=== PATIENT | male | born 1980 | race Caucasian/White ===

== ENCOUNTER 2017-02-08 17:57 | Observation (INO) ==
[2017-02-08] MEDS ORDERED: Lidocaine/EPI 1:100k 1% 50 ML VIAL INFILT ONE (18:10)
--- NOTE | 2017-02-08 18:13 | Emergency Department Note ---
Disposition Clinical Impression: Lesion of finger, Osteomyelitis of finger of left hand Disposition: Admitted As Inpatient Condition: Good Skin/Abscess/FB HPI Chief complaint: ED Skin/Abscess/Foreign Body Stated complaint: knot on finger Time Seen by Provider: 02/08/17 18:08 Source: patient Mode of arrival: private vehicle Limitations: no limitations Nursing Notes Reviewed: Yes Vital Signs Reviewed: Yes Pt Subjective Complaint: lesion Onset (ago): month(s) Tetanus Up to Date: yes Location: L hand (index finger) Severity: moderate Quality: sharp Consistency: constant Improves with: none Worsens with: palpation, movement Context: other ('Had a knot on the finger for over a month with no pain and for the past 3 days it has moved toward the hand and become sore. Since this morning the pain has increased significantly and now it is red and swollen on the side of the finger as well. ) Associated symptoms: Denies: fever, chills, rigors, itching, nausea, vomiting, malaise, arthralgias, myalgias Treatments prior to arrival: none Allergies Allergy/AdvReac Type Severity Reaction Status Date / Time No Known Allergies Allergy Verified 02/08/17 18:07 All systems ED: reviewed and negative except as stated. Review of Systems: As Per HPI Constitutional: Denies: fever, chills, weakness Gastrointestinal: Denies: abdominal pain, nausea, vomiting Musculoskeletal: Denies: back pain, neck pain, joint swelling Neurological: Denies: headache, weakness, numbness, paresthesias Hematological/Lymphatic: Denies: easy bleeding, easy bruising Past Medical History - Past Medical History Attestation: Yes The following information was validated with the patient. Source: patient Medical history: Reports: renal disease Psychiatric history: Reports: schizophrenia - Social History Smoking Status: Former smoker Smokeless Tobacco Status: Yes Alcohol use: Reports: occasionally Drug use: Reports: none Physical Exam - General Limitations: no limitations General appearance: alert, in no apparent distress - Head Head exam: atraumatic, normocephalic, normal inspection - Eye Eye exam: Present: normal appearance, PERRL. Absent: scleral icterus, conjunctival injection, periorbital swelling - ENT ENT exam: normal exam, normal oropharynx, mucous membranes moist - Neck Neck exam: Present: normal inspection, full ROM, trachea midline. Absent: meningismus - Respiratory Respiratory exam: Absent: respiratory distress - Extremities Exam Extremities exam: Present: full ROM, tenderness, normal capillary refill - Expanded Upper Extremity Exam Hand L/R front image: 1 - other (tender nodule) 2 - other (mild edema) Hand L/R back image: 1 - mild erythema and edema, tender Neuromotor exam: Normal: wrist extension, thumb opposition, thumb IP flexion, thumb adduction, fingers 2-5 abduction Neurosensory exam: Normal: radial nerve, ulnar nerve, median nerve Hand tendon exam: Normal: flexor digitorum profundus (location), flexor digitorum superficialis (location), extensor tendon (location) Vascular exam: Normal: capillary refill, radial pulse, ulnar pulse - Neurological Exam Neurological exam: Present: alert, oriented X3, CN II-XII intact, normal gait. Absent: motor sensory deficit - Psychiatric Psychiatric exam: Present: normal affect, normal mood - Skin Skin exam: Present: warm, dry, intact, normal color Course Course Narrative: Patient presents from home for evaluation of a painful knot on the volar aspect of the middle phalanx of the left index finger. The knot has been present for a month with no pain until today. He states that the knot has moved proximally over the past 3-4 days. This morning he noticed redness and swelling around the knot that extends to the radial side. The tenderness is circumferential. He has FAROM and intact sensation in the finger. Strength is symmetric in the fingers. Patient's tdap is current and he is otherwise healthy. Lesion appears to be an abscess +/- possible cyst. Will get an xray and I&D the abscess. Finger blocked to help with pain. This provided significant symptomatic improvement. Xray shows bony abnormality. Will wait for Radiologist read. Dr. Verde consulted. Rad reports focal mature periosteal reaction. Patient has hx of osteomyelitis of the foot in the past which required multiple surgeries and months of IVABX. He states that the infection was from MRSA. Will start ABX and consult with ortho. Patient's finger appears dusky and cap refill is delayed. This appears to be vasospasm - possibly second to the anaesthetic. PAtient denies pain or tenderness in the finger. Patient seen by Dr. Verde. Phentolamine ordered. Patient informed that he will need to be admitted for IVABX. He is in agreement with the plan and asked if he could go to his car to get some things. I informed him that he would be getting another injection in the finger to reverse the vasospasm. He assured me that he would "be right back." Pharmacy called to check on status of phentolamine order. Yeyo states that it will be sent up shortly. Patient still outside. Security notified to go find patient and ask him to return. Pharmacy called again. No answer. Yeyo from Pharmacy called to inform that we are out of phentolamine and we currently have nothing to reverse vasospasm. Patient returned from outside. He states that he was smoking a cigarette and getting his phone. His finger is now pink and has normal cap refill. Pain has returned somewhat. - Reevaluation(s) Reevaluation #2: Patient returns from his car. His finger color has returned to normal. Cap refill is normal. Tenderness / pain still improved. Time: 19:55 - Consultations Consultation #1: Case discussed with Dr. Verde. He has seen the patient, recommends phentol Time: 19:48 Consultation #2: Case was discussed with Dr. Tobin. He agrees with the plan to admit, get the MRI, start antibiotics, and use phentolamine. Time: 19:49 Consultation #3: MR tim called by appraisal technician. They report that a hand MR is not something they routinely come in for after hours. They latrice that we contact [facility] to discuss the urgency of the situation. Discussed case with Dr Limon - Radiologist. She states that the study does not need to be done emergently. Called the appraisal technician, Stefani back. She states that the MR meeta will be in tomorrow at 11:00 am. Time: 20:25 Vital Signs Temperature 97.6 F 02/08/17 18:02 Pulse Rate 106 02/08/17 18:02 Respiratory Rate 16 02/08/17 18:02 Blood Pressure 137/85 02/08/17 18:02 O2 Sat by Pulse Oximetry 100 02/08/17 18:02 Temperature 97.6 F 02/08/17 18:02 Pulse Rate 106 02/08/17 18:02 Respiratory Rate 16 02/08/17 18:02 Blood Pressure 137/85 02/08/17 18:02 O2 Sat by Pulse Oximetry 100 02/08/17 18:02 Oxygen Delivery Oxygen Delivery Room Air Skin/Abscess/Foreign Body - Medical Records Medical records reviewed: Yes I reviewed the patient's medical records. - Lab Data Lab results reviewed: Yes I reviewed the patient's lab results. - Radiology Data Radiology results reviewed: Yes I reviewed the patient's radiology results. Finger X-Ray 02/08/17 18:35 IMPRESSION: Focal mature periosteal reaction of the volar middle phalanx of the left 2nd digit with overlying soft tissue focal swelling. A soft tissue lesion is likely. An MRI with contrast is recommended to further evaluate. D/ / Viviana Harris Cha, MD / Viviana Harris Cha, MD Interpreting Provider: Viviana Harris Cha, MD
[2017-02-08] MEDS ORDERED: PHENTOLAMINE MESYLATE 5 MG VIAL IJ ONE (19:34)
[2017-02-08] MEDS ORDERED: 0.9 % Sodium Chloride 1,000 ML IVC ONE (19:46)
[2017-02-08] MEDS ORDERED: *HR* Morphine 2 MG/ML SYRINGE IVP ONE (19:46)
[2017-02-08] MEDS ORDERED: Ondansetron 4 MG/2 ML VIAL IVP ONE (19:46)
[2017-02-08] MEDS ORDERED: Vancomycin 1,000 MG in D5% in Water 250 ML IVPB ONE (19:52)
--- NOTE | 2017-02-08 19:56 | Emergency Department Note ---
START Narrative - START START: For this encounter, I have reviewed the SOCIAL STUDIES TEACHER or PA documentation, treatment plan, and medical decision making; and I have had face to face time with this patient. Possible osteomyelitis. The patient did have considerable pain and digital block was performed. I do suspect he had some degree of vasospasm following digital block. We will administer phentolamine locally, consult orthopedics, obtain MRI with contrast, initiating antibiotic therapy for possible osteomyelitis. The patient is right-hand dominant. Plan to admit for IV antibiotics.
[2017-02-08 20:14] LABS: Basophils # 0.1 K/mcL (0.0-0.2); Basophils % 0.5 %; Eosinophils # 0.1 K/mcL (0.0-0.6); Eosinophils % 0.9 %; Hematocrit 47.6 % (37.5-50.1); Immature Granulocytes % 0.3 % (0-4); Lymphocytes % 27.4 %; Mean Corpuscular HGB Conc 33.6 g/dL (31.6-35.5); Mean Corpuscular Hemoglobin 30.9 pg (28.0-33.3); Mean Corpuscular Volume 91.9 fL (83.0-100.0); Mean Platelet Volume 9.6 fL (9.4-12.4); Monocytes % 9.3 %; Neutrophils # 6.9 K/mcL (1.6-8.9); Platelet Count 264 K/mcL (140-400); Red Blood Count 5.18 M/mcL (4.19-5.50); Red Cell Distribution Width 13.5 % (11.5-14.5); Segmented Neutrophils % 61.6 %
[2017-02-08 20:26] LABS: BUN/Creatinine Ratio 13 (6-26); Blood Urea Nitrogen 14 mg/dL (8-26); Calcium 10.1 mg/dL (8.6-10.8); Carbon Dioxide 28 mEq/L (19-29); Chloride 103 mEq/L (98-109); Glucose 100 mg/dL (70-99); Osmolality,Calculated 293 (280-300); Potassium 3.7 mEq/L (3.5-4.5); Sodium 141 mEq/L (136-145); eGFR For African Americans > 60 (> 60); eGFR For Non-African Americans > 60 (> 60)
[2017-02-08] MEDS ORDERED: Ampicillin/Sulbactam 3,000 MG in 0.9 % Sodium Chloride Mini Bag 100 ML IVPB ONE (20:50)
[2017-02-09] MEDS ORDERED: Naloxone 0.4 MG/ML INJ IVP PRN (00:13)
[2017-02-09] MEDS: *HR* Morphine 2 MG/ML SYRINGE IVP PRN ×5 (00:18→19:21)
--- NOTE | 2017-02-09 00:26 | Internal Med History&Physical ---
Date of Encounter: 02/08/17 Time of Encounter: 11:30 Assessment and Plan (1) Schizophrenia Current visit: Yes Status: Chronic Mood and affect are normal. Will monitor closely for any signs of overt psychosis. Qualifiers: Schizophrenia type: unspecified Qualified Code(s): F20.9 - Schizophrenia, unspecified Code(s): F20.9 - Schizophrenia, unspecified SNOMED Code(s): 74307031 (2) Cannabis abuse Current visit: Yes Status: Acute Advised to limit use (3) Lesion of finger Current visit: Yes Status: Acute soft tissue swelling? chronic Analgesia ordered Code(s): L98.9 - Disorder of the skin and subcutaneous tissue, unspecified SNOMED Code(s): 458055017 (4) Osteomyelitis of finger of left hand Current visit: Yes Status: Acute MRI hand ordered will follow up Vancomycin and Levaquin for now Ortho consult Follow up blood cx Analgesia H/o MRSA in past will place on contact precautions Code(s): M86.9 - Osteomyelitis, unspecified SNOMED Code(s): 45648227 (5) MRSA (methicillin resistant Staphylococcus aureus) Current visit: Yes Status: Resolved h/o MRSA soft tissue infection, will follow cx and continue Vancomycin for now Code(s): A49.02 - Methicillin resistant Staphylococcus aureus infection, unspecified site SNOMED Code(s): 457380536 Internal Medicine - H&P: HPI Chief complaint: Left Index finger swelling Admitted From: Emergency Dept Plans for Post Hospital Care: Home History of present illness: Mr. Aldrich is a 37 year old male with past medical history of schizophrenia ( not on any meds), MRSA foot infection comes in the the ER with painful swelling in left index finger. He notes that he has been having problems with pain and swelling in this finger for past few months but in last week has become more unbearable and he believes the swelling as now spread to his entire finger. He is unable to remember if he had trauma to the finger, denies any fevers, chills , no nausea, no vomiting, limited ROM of PIP of left index. Xray concerning for some osteomyelitis ? Expected LOS less than 2 midnights. Past Med Surg Social Fam HX - Past Medical History Medical history: renal disease Psychiatric history: schizophrenia - Social History Smoking Status: Former smoker Smokeless Tobacco Status: Yes Alcohol use: occasionally Drug use: none Internal Medicine - H&P: Meds 3 Allergy/AdvReac Type Severity Reaction Status Date / Time No Known Allergies Allergy Verified 02/08/17 18:07 All Systems PM: A 10-system review of systems was performed and is negative for pertinent findings except as documented above in the HPI. - Constitutional Vitals: Temp Pulse Resp BP Pulse Ox 98.3 F 101 19 141/79 99 02/09/17 00:16 02/09/17 00:16 02/09/17 00:16 02/09/17 00:16 02/09/17 00:16 General appearance: Present: A&O X 3 - Head Head exam: Present: atraumatic - Eye Eye exam: Present: EOMI, PERRL, conjuntiva pink Pupils: Present: PERRL - ENT ENT exam: Present: mucous membranes moist Additional comments: Poor dentition - Neck Neck exam general surgery: Present: full ROM, normal inspection - Respiratory Respiratory exam: Present: CTAB - Cardiovascular Cardiovascular exam: Present: RRR, +S1, +S2 - GI/Abdominal GI/Abdominal exam: Present: diminished bowel sounds, normal bowel sounds - Extremities Exam Extremities exam: Present: joint swelling (left pip index finger) - Back Exam Back exam: Present: full ROM - Neurological Exam Neurological exam: Present: normal gait, oriented X3, no focal deficits, strengths equal and symetr throughout - Psychiatric Psychiatric exam: Present: normal affect, normal mood - Skin Skin exam: Present: normal color Internal Med - H&P Results - Labs CBC & Chem 7: 02/08/17 20:02 02/08/17 20:02 - Diagnostic Studies Other Images Status: image reviewed by me
[2017-02-09] MEDS ORDERED: Vancomycin 1,250 MG in D5% in Water 250 ML IVPB SCH (01:00)
[2017-02-09] MEDS: Ketorolac 30 MG/ML VIAL IVP PRN ×2 (03:23→13:35)
[2017-02-09] MEDS: Famotidine 20 MG/2 ML VIAL IVP SCH ×2 (04:27→16:49)
[2017-02-09] MEDS: *HR* Heparin 5,000 UNIT/ML VIAL SQ SCH ×2 (04:27→16:49)
[2017-02-09 05:02] LABS: INR 1.1; Prothrombin Time 12.4 Seconds (9.4-12.1)
[2017-02-09 05:03] LABS: Basophils # 0.1 K/mcL (0.0-0.2); Basophils % 0.7 %; Eosinophils # 0.3 K/mcL (0.0-0.6); Eosinophils % 3.1 %; Hematocrit 42.7 % (37.5-50.1); Immature Granulocytes % 0.3 % (0-4); Lymphocytes # 3.1 K/mcL (0.6-4.6); Lymphocytes % 33.9 %; Mean Corpuscular HGB Conc 33.5 g/dL (31.6-35.5); Mean Corpuscular Hemoglobin 30.6 pg (28.0-33.3); Mean Corpuscular Volume 91.2 fL (83.0-100.0); Mean Platelet Volume 10.2 fL (9.4-12.4); Monocytes % 10.5 %; Neutrophils # 4.7 K/mcL (1.6-8.9); Platelet Count 210 K/mcL (140-400); Red Blood Count 4.68 M/mcL (4.19-5.50); Red Cell Distribution Width 13.6 % (11.5-14.5); Segmented Neutrophils % 51.5 %
[2017-02-09 05:04] LABS: Activated Partial Thrombo Time 29.3 Seconds (26.0-36.0)
[2017-02-09 05:06] LABS: Hemoglobin 14.3 g/dL (12.9-16.9)
[2017-02-09 05:36] LABS: BUN/Creatinine Ratio 16 (6-26); Blood Urea Nitrogen 16 mg/dL (8-26); Carbon Dioxide 24 mEq/L (19-29); Chloride 105 mEq/L (98-109); Glucose 81 mg/dL (70-99); Magnesium 1.9 mg/dL (1.6-2.6); Osmolality,Calculated 286 (280-300); Phosphorous 3.9 mg/dL (2.3-4.7); Potassium 3.9 mEq/L (3.5-4.5); Sodium 138 mEq/L (136-145); Uric Acid 6.4 mg/dL (3.5-7.2); eGFR For African Americans > 60 (> 60); eGFR For Non-African Americans > 60 (> 60)
--- NOTE | 2017-02-09 07:22 | Orthopedic Consult Note ---
Date of Encounter: 02/09/17 Time of Encounter: 07:21 History of Present Illness HPI: Mr. Aldrich is a 37 year old male With a long history of not on his left index finger volar aspect. Changes recently with increased pain. Patient with history of MRSA until require multiple surgeries. Physical exam swelling no erythema Good cap refill Mass volar aspect 1cm by half centimeter Tender X-ray showed bone erosion MRI pending We will be evaluated by hand surgeon in the morning. Past Med Surg Social Fam HX - Past Medical History Medical history: renal disease Psychiatric history: schizophrenia - Social History Smoking Status: Former smoker Smokeless Tobacco Status: Yes Alcohol use: occasionally Drug use: none Medications and Allergies 3 Allergy/AdvReac Type Severity Reaction Status Date / Time No Known Allergies Allergy Verified 02/08/17 18:07 All Systems Reviewed: A 10-system review of systems was performed and is negative for pertinent findings except as documented above in the HPI. Physical Exam - Constitutional Vitals: Temp Pulse Resp BP Pulse Ox 98.0 F 98 21 137/77 95 02/09/17 03:37 02/09/17 03:37 02/09/17 03:37 02/09/17 03:37 02/09/17 03:37 Results - Labs Result Diagrams: 02/09/17 04:19 02/09/17 04:19 Labs: Abnormal lab results PT 12.4 Seconds (9.4-12.1) H 02/09/17 04:19 H & H 02/09/17 Range/Units 04:19 Hgb 14.3 D (12.9-16.9) g/dL Hct 42.7 (37.5-50.1) % All other labs normal. Consult Discharge Plan - Plan Referrals: NONE,PCP [Primary Care Provider] -
[2017-02-09] MEDS: levoFLOXacin 750 MG TABLET PO SCH (08:58)
[2017-02-09] MEDS: Vancomycin 1,250 MG in D5% in Water 250 ML IVPB SCH ×2 (09:43→21:22)
[2017-02-09] MEDS: *HR* OxyCODONE/APAP 5/325 TABLET PO PRN ×2 (15:21→22:39)
--- NOTE | 2017-02-09 15:47 | Internal Med Progress Note ---
Date of Encounter: 02/09/17 Time of Encounter: 10:15 - Assessment and plan (1) Osteomyelitis of finger of left hand Current Visit: Yes Status: Suspected Assessment and plan: Pt to have MRI to eval second digit. To be seen by hand surgery tomorrow. Continue IV abx at this time. Has hx of MRSA infections in the past. (2) Schizophrenia Current Visit: Yes Status: Chronic Assessment and plan: Continue home meds. Qualifiers: Schizophrenia type: unspecified Qualified Code(s): F20.9 - Schizophrenia, unspecified (3) Cannabis abuse Current Visit: Yes Status: Chronic - Subjective Interval history: Mr Aldrich is currently in observation for potential osteomyelitis of finger. He is having some pain and will be seen by hand surgery tomorrow. Mr Aldrich is up in the room. No fever or chills. Tolerating abx. No CP or SOB. Awaiting MRI at this time. - Constitutional Vitals: Temp Pulse Resp BP Pulse Ox 98.2 F 92 14 124/86 97 02/09/17 11:27 02/09/17 11:27 02/09/17 11:27 02/09/17 11:27 02/09/17 11:27 General appearance: Present: A&O X 3, answers questions appropriately - Head Head exam: Present: normocephalic - Eye Eye exam: Present: conjuntiva pink - ENT ENT exam: Present: mucous membranes dry - Respiratory Respiratory exam: Present: CTAB. Absent: rhonchi, wheezes - Cardiovascular Cardiovascular exam: Present: RRR. Absent: systolic murmur, tachycardia - GI/Abdominal GI/Abdominal exam: Present: normal bowel sounds, soft - Extremities Exam Extremities exam: Present: warm Additional comments: L hand second digit with swelling and decreased movement. - Neurological Exam Neurological exam: Present: alert, oriented X3, no focal deficits Internal Medicine: Result - Labs CBC & Chem 7: 02/09/17 04:19 02/09/17 04:19 Labs: Short CBC 02/09/17 Range/Units 04:19 WBC 9.2 (4.3-11.1) K/mcL Hgb 14.3 D (12.9-16.9) g/dL Hct 42.7 (37.5-50.1) % Plt Count 210 (140-400) K/mcL Neutrophils # 4.7 (1.6-8.9) K/mcL BMP 02/09/17 04:19 Sodium 138 Potassium 3.9 Chloride 105 Carbon Dioxide 24 BUN 16 Creatinine 1.02 Glucose 81 Calcium 9.0 - ABG Interpretation ABG results: PT/INR, D-dimer PT 12.4 Seconds (9.4-12.1) H 02/09/17 04:19 - Impressions Impressions Hand MRI 02/09/17 19:45 IMPRESSION: 1. Small fairly well-circumscribed lesion centered within the subcutaneous tissues along the volar aspect of the 2nd digit measuring 1.0 x 1.5 x 0.6 cm. This lesion is indeterminate and appears to be closely associated with the adjacent flexor tendon sheath. There is mild soft tissue edema of the 2nd digit and mild tenosynovitis of the 2nd flexor tendon. Differential considerations would include nodular fasciitis as well as giant cell tumor of the tendon sheath amongst other etiologies. D/ / René Dela Cruz MD / René Dela Cruz MD Interpreting Provider: René Dela Cruz MD Consult Discharge Plan - Plan Referrals: NONE,PCP [Primary Care Provider] -
[2017-02-10] MEDS: *HR* Morphine 2 MG/ML SYRINGE IVP PRN ×2 (01:25→08:56)
[2017-02-10] MEDS: Ketorolac 30 MG/ML VIAL IVP PRN (04:39)
[2017-02-10 05:11] LABS: Hematocrit 43.5 % (37.5-50.1); Hemoglobin 14.7 g/dL (12.9-16.9); Mean Corpuscular HGB Conc 33.8 g/dL (31.6-35.5); Mean Corpuscular Hemoglobin 30.5 pg (28.0-33.3); Mean Corpuscular Volume 90.2 fL (83.0-100.0); Platelet Count 229 K/mcL (140-400); Red Blood Count 4.82 M/mcL (4.19-5.50); Red Cell Distribution Width 13.2 % (11.5-14.5)
[2017-02-10 05:36] LABS: BUN/Creatinine Ratio 15 (6-26); Blood Urea Nitrogen 15 mg/dL (8-26); Calcium 9.1 mg/dL (8.6-10.8); Carbon Dioxide 23 mEq/L (19-29); Chloride 107 mEq/L (98-109); Glucose 88 mg/dL (70-99); Magnesium 1.9 mg/dL (1.6-2.6); Osmolality,Calculated 288 (280-300); Potassium 3.8 mEq/L (3.5-4.5); Sodium 139 mEq/L (136-145); eGFR For African Americans > 60 (> 60); eGFR For Non-African Americans > 60 (> 60)
[2017-02-10] MEDS: Famotidine 20 MG/2 ML VIAL IVP SCH (06:26)
[2017-02-10] MEDS: *HR* Heparin 5,000 UNIT/ML VIAL SQ SCH (06:26)
[2017-02-10] MEDS: Vancomycin 1,250 MG in D5% in Water 250 ML IVPB SCH (08:47)
[2017-02-10] MEDS: levoFLOXacin 750 MG TABLET PO SCH (08:47)
[2017-02-10 10:18] VITALS: BP 128/76
[2017-02-10] MEDS: *HR* OxyCODONE/APAP 5/325 TABLET PO PRN (11:42)
--- NOTE | 2017-02-10 14:19 | Discharge Summary ---
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 (2) Osteomyelitis of finger of left hand Priority: Primary Status: Ruled-out (3) Schizophrenia Priority: Secondary Status: Chronic Qualifiers: Schizophrenia type: unspecified Qualified Code(s): F20.9 - Schizophrenia, unspecified (4) Cannabis abuse Priority: Secondary Status: Chronic - Discharge Medications Prescriptions: OxyCODONE/APAP 5/325 [Percocet 5/325 MG] 1 each PO Q6HR PRN #20 tablet PRN Reason: Pain Home Medications: OxyCODONE/APAP 5/325 [Percocet 5/325 MG] 1 each PO Q6HR PRN #20 tablet 02/10/17 [Rx] Allergies/Adverse Reactions: 3 Allergy/AdvReac Type Severity Reaction Status Date / Time No Known Allergies Allergy Verified 02/08/17 18:07 Date of admission: 02/08/17 20:33 Primary care physician: PCP VALENTE Consults: Lisa - Patient Status Disposition: Home, Self-Care Condition: Good Functional capacity at discharge: independent ambulation Overall status at discharge: patient is progressing back to baseline - Discharge Instructions Follow Up With: NONE,PCP [Primary Care Provider] - Forms: Inpatient Work/School Release - Diet and Activity Activity: resume usual activities as tolerated Diet: advance to your usual diet Hospital course: Mr. Aldrich is a 37 year old male with hx of prior MRSA infections presented to ED with complaints of pain and swelling of second digit of L hand. He was evaluated in ED and xray noted some changes in bone. Due to concern for possible osteomyelitis he was placed in observation. Mr Aldrich was placed in observation on medsurg. He was started on IV abx. He was given pain medications and seen by orthopedics. 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 No osteomyelitis noted. He was seen by Dr Gonzalez and arrangements made for follow up in the office. On 02/10 he was afebrile and vitals were stable. He was felt ready for discharge home. He was given #20 Percocet 5/325 and placed off work for a week. - Time Spent with Patient Total time spent providing and/or coordinating discharge services: 39min - Constitutional Vitals: Temp Pulse Resp BP Pulse Ox 98.3 F 87 16 128/76 99 02/10/17 07:10 02/10/17 07:10 02/10/17 07:10 02/10/17 07:10 02/10/17 07:10 General appearance: Present: A&O X 3, answers questions appropriately - Head Head exam: Present: normocephalic - Eye Eye exam: Present: conjuntiva pink - ENT ENT exam: Present: mucous membranes dry - Respiratory Respiratory exam: Present: CTAB. Absent: rhonchi, wheezes - Cardiovascular Cardiovascular exam: Present: RRR. Absent: tachycardia - Extremities Exam Extremities exam: Present: tenderness, warm - Neurological Exam Neurological exam: Present: alert, oriented X3, no focal deficits
[2017-02-10] MEDS ORDERED: Aminoglycoside Consult 1 EACH MC ONE (15:13)
== END 2017-02-10 15:14 | disposition home or self-care (01) ==
LOC: EMEROO 17:57 → 3NENU 17:57 → SUATTDRO 20:33 → 3NENU 21:17
PROVIDERS: ADMIT Internal Medicine; ATTEND Internal Medicine